=== PATIENT | male | born 1990 | race African-American/Black ===

== ENCOUNTER 2021-07-22 07:55 | Inpatient (IN) | payer SELFPAY ==
[2021-07-22] VITALS (23 sets, daily range): BP systolic 107–179; BP diastolic 50–109; PULSE 77–107; RESP 8–26; TEMP 35.8–37.2; O2SAT 94–100
--- NOTE | 2021-07-22 | ECG_ITS ---
Measurements Intervals [place] Rate: 101 P: 79 W[place]: 154 QRS: 56 QRSD: 90 T: 47 QT: 326 QTc: 424 Interpretive Statements SINUS TACHYCARDIA POSSIBLE LEFT ATRIAL ENLARGEMENT INCOMPLETE RIGHT BUNDLE BRANCH BLOCK BASELINE ARTIFACT- II, V2-V6 BORDERLINE ECG Electronically Signed On 07-22-2021 12:44:12 CDT by Jurgen Malone D.O.
--- NOTE | ~2021-07-22 | XR_ITS ---
EXAMINATION: XR chest 1V portable INDICATION: Altered mental status TECHNIQUE: Portable AP chest at 0809 hours COMPARISON: None available FINDINGS: The lungs are free of acute opacities. There is no pleural effusion or pneumothorax. The ca rdiomediastinal silhouette is normal. There is partially imaged plate and screw fixation of the proxi mal left humerus. IMPRESSION: 1. No acute cardiopulmonary abnormality. Reviewed, dictated and finalized at location A.
--- NOTE | ~2021-07-22 | XR_ITS ---
EXAMINATION: XR knee LT 3V DATE: 07/22/2021 15:25 INDICATION: Posterior left knee pain. TECHNIQUE: 3 views of left knee were obtained. COMPARISON: None. FINDINGS: Bone alignment is normal. No fracture. There is mild tricompartmental osteoarthritis charac terized by tiny marginal osteophytes. No joint space narrowing. No knee joint effusion. IMPRESSION: 1. Mild left knee osteoarthritis. Reviewed, dictated and finalized at location A.
--- NOTE | ~2021-07-22 | US_ITS ---
EXAMINATION: US venous doppler [facility] DATE: 07/22/2021 13:34 INDICATION: Lower limb pain TECHNIQUE: Gifford scale images without and with compression and Doppler images of the bilateral lower e xtremity veins were obtained. COMPARISON: None FINDINGS: The right common femoral vein, profunda femoral vein, femoral vein, popliteal vein, peroneal trunk, p osterior tibial veins, and greater saphenous vein are patent. The left common femoral vein, profunda femoral vein, femoral vein, popliteal vein, peroneal trunk, po sterior tibial veins, and greater saphenous vein are patent. IMPRESSION: 1. Patent bilateral lower extremity veins. No evidence of deep venous thrombosis. Reviewed, dictated and finalized at location A. IMPRESSION: 1. Patent bilateral lower extremity veins. No evidence of deep venous thrombosi s.
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
[2021-07-22] MEDS: KETOROLAC (*BKC) 60 MG/2 ML VIAL (08:09)
[2021-07-22] MEDS: SODIUM CHLORIDE 0.9% IV 1,000 ML 999 ML IV CONT ×3 (08:36→16:41)
[2021-07-22 08:38] LABS: Basophils Absolute Auto 0.1 K/mm3 (0.0-0.1); Basophils Percent Auto 0.5 % (0.2-1.2); Eosinophils Absolute Auto 0.1 K/mm3 (0-0.3); Eosinophils Percent Auto 0.2 % (0-4.4); Hematocrit 45.9 % (42.0-52.0); Immature Granulocyte Absolute 1.09 K/mm3 (0.00-0.031); Lymphocytes Absolute Auto 1.88 K/mm3 (0.9-3.2); Lymphocytes Percent Auto 8.5 % (18.3-44.2); Mean Corpuscular HGB Conc 30.5 g/dl (32-36); Mean Corpuscular Hemoglobin 29.5 pg (26-34); Mean Corpuscular Volume 96.6 fl (80-100); Mean Platelet Volume 9.4 fl (7.4-10.4); Monocytes Absolute Auto 0.9 K/mm3 (0.1-0.6); Monocytes Percent Auto 4.3 % (2.6-8.5); Neutrophils Absolute Auto 17.9 K/mm3 (1.3-6.7); Neutrophils Percent Auto 81.5 % (45.5-73.1); Platelet Count Result 340 k/mm3 (150-375); Red Blood Count 4.75 M/mm3 (4.6-6.20); Red Cell Distribution Width 12.4 % (11.5-14.5)
[2021-07-22 08:47] LABS: Acetaminophen < 10 ug/mL (10-30); Ethanol < 10 mg/dL (<10); Salicylate < 1.0 mg/dL (2-20)
[2021-07-22 09:11] LABS: Alanine Aminotransferase 79 U/L (4-50); Albumin Level 4.9 g/dL (3.5-5.1); Alkaline Phosphatase 69 U/L (38-126); Anion Gap 17 mmol/L (8-16); Aspartate Amino Transferase 181 U/L (17-59); Bilirubin,Total 0.4 mg/dL (0.2-1.3); Blood Urea Nitrogen 22 mg/dL (9-20); Calcium 9.2 mg/dL (8.4-10.2); Carbon Dioxide 20 mmol/L (22-30); Chloride 101 mmol/L (98-107); Estimated CRCL calculation 56 ml/min; Estimated Glomerular Filt Rate 47; Glucose 97 mg/dL (65-110); Potassium 4.8 mmol/L (3.4-5.0); Sodium 138 mmol/L (137-145)
[2021-07-22 11:40] LABS: Add Urine Microscopic? YES; Appearance Urine Clear (Clear); Bilirubin Urine Negative (Negative); Blood Urine 1+ (Negative); Color Urine Yellow (Yellow); Glucose Urine UA Negative (Negative); Ketones Urine Trace mg/dL (Negative); Leukocyte Esterase Ur Negative LEU/UL (Negative); Mucus Urine Rare /lpf; Nitrate Urine Negative (Negative); Protein Urine 2+ mg/dL (Negative); Specific Grav Ur 1.018 (1.001-1.035); Squamous Epithelial Cell Urine Rare /hpf (Few); Urobilinogen Urine Negative mg/dL (<2.0)
[2021-07-22 12:11] LABS: Barbiturate Screen Urine Negative (Negative); Benzodiazepines Screen Urine Positive (Negative)
[2021-07-22 12:19] LABS: Amphetamine Screen Urine Positive (Negative); Cannabinoid Screen Urine Positive (Negative); Cocaine Screen Urine Negative (Negative); Methadone Screen Urine Negative (Negative); Opiate Screen Urine Negative (Negative); Phencyclidine Screen Urine Negative (Negative)
--- NOTE | 2021-07-22 12:40 | PC.NURSE ---
Patient states he is leaving and is requesting to have IV removed. ROSALINAP Jamar notified.
--- NOTE | 2021-07-22 12:50 | PC.NURSE ---
Patient now states he is unable to walk and it feels like he has no circulation in his legs.
--- NOTE | 2021-07-22 12:53 | PC.NURSE ---
Patient to ultrasound.
--- NOTE | 2021-07-22 13:36 | PC.NURSE ---
[facility]. [facility]
[2021-07-22 14:52] LABS: Erythrocyte Sedimentation Rate 4 mm/hr (0-20)
--- NOTE | 2021-07-22 14:56 | PC.NURSE ---
Patient seen attempting to ambulate out of ED stating, get me a wheelchair I am leaving. Patient had removed second IV and has blood covering arm. IV site dressed and patient told to stay in bed so EDP Jamar can speak to patient.
--- NOTE | 2021-07-22 15:04 | PC.NURSE ---
Patient is willing to stay in hospital at this time.
[2021-07-22 16:33] LABS: CRP 0.7 mg/dL (<1.0); Creatine Kinase 2093 U/L (55-170)
--- NOTE | 2021-07-22 16:39 | PC.NURSE ---
Per EDIsis Roldan via verbal order read-back, give another 1L of normal saline bolus.
[2021-07-22] MEDS: SODIUM CHLORIDE 0.9% IV 1,000 ML 500 ML IV CONT (18:00)
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
--- NOTE | 2021-07-22 19:04 | ADMGEN ---
This patient, Jean Gamble, was admitted to [facility] Surg Room 323-01. Patient/family oriented to hospital policies and general routines including ID bracelet, bed and alarms, visiting hours, pain management, procedures, bathroom and other care routines, personal items, smoking policy, room service/diet, and visiting hours. Information on how to activate the Rapid Response Team has been discussed. Patient/Family are encouraged to report perceived risks to care and to ask questions if they do not understand what they are told or what they should do.
[2021-07-22] MEDS: LORazepam INJ (*CRX) 2 MG/ML VIAL 1 MG IV PUSH (19:59)
[2021-07-22] MEDS: SODIUM CHLORIDE 0.9% IV 1,000 ML 200 ML IV CONT (20:05)
[2021-07-22] MEDS: HEPARIN SODIUM 5,000 UNITS/ML VIAL 5000 UNITS SUB-Q (20:47)
[2021-07-22 21:58] LABS: Folic Acid 10.3 ng/mL (2.76->20)
--- NOTE | 2021-07-22 23:07 | PC.NURSE ---
Called Dr llamas,informed of pt complaint of numbness,tingling, sharp piuns in skinny legs from knees down. directed to give prn tylenol iv that is on med orders.
[2021-07-22] MEDS: HYDROcodone/acetaminophen (*CRX) 5-325 MG TABLET 1 TAB PO (23:58)
[2021-07-23] MEDS: SODIUM CHLORIDE 0.9% IV 1,000 ML 200 ML IV CONT ×3 (01:25→16:27)
[2021-07-23] MEDS: LORazepam INJ (*CRX) 2 MG/ML VIAL 1 MG IV PUSH ×2 (04:45→06:07)
[2021-07-23] MEDS: GABAPENTIN 300 MG CAPSULE PO ×4 (05:02→17:41)
[2021-07-23 05:54] VITALS: BP 142/74; PULSE 76; RESP 20; TEMP 36.7; O2SAT 100
[2021-07-23] MEDS: HYDROcodone/acetaminophen (*CRX) 5-325 MG TABLET 1 TAB PO ×3 (06:04→19:52)
[2021-07-23 07:05] LABS: Basophils Percent Auto 0.2 % (0.2-1.2); Eosinophils Absolute Auto 0.1 K/mm3 (0-0.3); Hemoglobin 11.3 g/dL (14.0-18.0); Immature Granulocyte Absolute 0.06 K/mm3 (0.00-0.031); Immature Granulocyte Percent A 0.6 % (0-0.5); Lymphocytes Absolute Auto 3.36 K/mm3 (0.9-3.2); Lymphocytes Percent Auto 33.8 % (18.3-44.2); Mean Corpuscular HGB Conc 29.7 g/dl (32-36); Mean Corpuscular Hemoglobin 28.3 pg (26-34); Mean Platelet Volume 9.4 fl (7.4-10.4); Monocytes Absolute Auto 0.7 K/mm3 (0.1-0.6); Monocytes Percent Auto 7.4 % (2.6-8.5); Neutrophils Absolute Auto 5.7 K/mm3 (1.3-6.7); Platelet Count Result 271 k/mm3 (150-375); Red Cell Distribution Width 12.1 % (11.5-14.5); White Blood Count 9.9 K/mm3 (4.5-10.0)
[2021-07-23 08:10] LABS: Anion Gap 6 mmol/L (8-16); Blood Urea Nitrogen 17 mg/dL (9-20); Calcium 7.8 mg/dL (8.4-10.2); Carbon Dioxide 22 mmol/L (22-30); Chloride 110 mmol/L (98-107); Estimated CRCL calculation 108 ml/min; Estimated Glomerular Filt Rate > 60; Glucose 81 mg/dL (65-110); Potassium 3.7 mmol/L (3.4-5.0); Sodium 138 mmol/L (137-145)
[2021-07-23 08:15] LABS: Creatine Kinase MB 25.4 ng/mL (0.0-2.37)
[2021-07-23 09:40] LABS: Hypochromasia 1+ (NORMAL); Platelet Estimate Adequate (Adequate)
[2021-07-23] MEDS: HEPARIN SODIUM 5,000 UNITS/ML VIAL 5000 UNITS SUB-Q ×2 (09:55→20:07)
--- NOTE | 2021-07-23 10:02 | PCOTNOTE ---
Patient was seen this morning for OT evaluation. As evaluation was in process, OT therapy clarification orders were cancelled. No further OT will be provided at this time.
[2021-07-23 10:33] LABS: Creatine Kinase 2754 U/L (55-170)
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
--- NOTE | 2021-07-23 12:03 | PM.IMPN ---
Progress Note: A&P Assessment and Plan (1) Rhabdomyolysis: Qualifiers: Encounter type: subsequent encounter Rhabdomyolysis type: traumatic Qualified Code(s): T79.6XXD - Traumatic ischemia of muscle, subsequent encounter Code(s): M62.82 - Rhabdomyolysis Status: Acute Assessment and Plan: The patient has rhabdo with bilateral leg cramping and elevated CK at 2000. Could be secondary to dehydration since he had ENOC with a Cr 2.0 vs amphetamine use. Venous Dopplers negative for DVT. CK increased today to 2700 Continue IV fluid hydration at 200 cc/hr He was placed on Gabapentin and [place] PRN for symptoms Symptomatic care until CK decreases. Continue monitoring. (2) Drug abuse: Code(s): F19.10 - Other psychoactive substance abuse, uncomplicated Status: Acute Assessment and Plan: Urine drug screen showing Positive Amphetamines and benzos. Patient denies uses. Patient admits to marijuana. The patient was given narcan in the field. Doing well at this time. (3) ENOC (acute kidney injury): Code(s): N17.9 - Acute kidney failure, unspecified Status: Acute Assessment and Plan: ENOC with Cr at 2.0 from dehydration. Improved today to 1.0. Continue with IV fluids due to rhabdo. Recheck BMP in AM. (4) Leukocytosis: Qualifiers: Leukocytosis type: unspecified Qualified Code(s): D72.829 - Elevated white blood cell count, unspecified Code(s): D72.829 - Elevated white blood cell count, unspecified Status: Acute Assessment and Plan: Could be related to stress induced trauma. Normalized today. No signs of infection at this time. There is a urine culture pending due to 7-9 WBCs in UA. No signs of infections. No abx at this time. Time Spent With Patient Time with patient: 25 - 35 minutes Subjective Date/time seen: 07/23/21 12:03 Interval history: Date of service 07/22/2021: Patient reports of continued leg cramping and swelling to bilaterally from his knees down. Worsening calf cramping with flexion and extension of his feet. He has not gotten up to walk due to the pain in his legs. He denies any back pain, fall prior to arrival, head trauma. Denies any fevers, chills, chest pain, shortness of breath, cough, nausea, vomiting, abdominal pain, lightheadedness, dizziness, or any other symptoms at this time. Review of Systems Review of Systems: All systems reviewed & are unremarkable except as noted in HPI and below Exam Narrative: General: 31-year-old man laying flat in bed talking on the phone. Appears comfortable. In no acute distress. Skin: No jaundice or cyanosis. Good skin turgor. Neck: Full range of motion. Supple. Back: No midline cervical, thoracic, lumbar tenderness to palpation. No step offs. No paraspinal tenderness. Good ROM. Sitting up multiple times during examination, lifting legs off of the bed, negative straight leg raise. Respiratory: Lungs are clear to auscultation bilaterally. No bony chest wall tenderness. Cardiovascular: The heart has a regular rate and rhythm without murmur. Lower extremities: Reproducible cramping/pain with dorsiflexion and plantar flexion on examination. Calf tenderness with palpation. Nonpitting lower extremity edema slightly appreciated on exam. Distal pulses are easily palpated. Gastrointestinal: The abdomen is soft, nontender and nondistended with active bowel sounds. Psychiatric: Lucid and oriented. Memory intact. Neurologic: No focal deficits. Speech is clear. No facial drooping. Objective Data Vital Signs Vital Signs: Vital Signs - 24 hr 07/22/21 14:06 07/22/21 16:43 07/22/21 17:29 Temperature 97.6 F Pulse Rate 85 78 86 Respiratory Rate 17 18 14 Blood Pressure 110/71 139/50 L 124/68 Pulse Oximetry 100 99 97 08/
[2021-07-23 14:00] VITALS: BP 154/97; PULSE 65; RESP 18; TEMP 36.4; O2SAT 99
[2021-07-23 22:00] VITALS: BP 165/85; PULSE 75; RESP 18; TEMP 36.8; O2SAT 99
[2021-07-24] MEDS: HYDROcodone/acetaminophen (*CRX) 5-325 MG TABLET 1 TAB PO ×4 (00:11→22:33)
[2021-07-24 06:00] VITALS: BP 151/83; PULSE 58; RESP 18; TEMP 36.4; O2SAT 100
[2021-07-24 06:53] LABS: Hematocrit 34.5 % (42.0-52.0); Hemoglobin 10.9 g/dL (14.0-18.0); Mean Corpuscular HGB Conc 31.6 g/dl (32-36); Mean Corpuscular Hemoglobin 28.7 pg (26-34); Mean Corpuscular Volume 90.8 fl (80-100); Mean Platelet Volume 9.7 fl (7.4-10.4); Platelet Count Result 271 k/mm3 (150-375); Red Cell Distribution Width 11.9 % (11.5-14.5); White Blood Count 6.8 K/mm3 (4.5-10.0)
[2021-07-24 07:06] LABS: Anion Gap 2 mmol/L (8-16); Blood Urea Nitrogen 11 mg/dL (9-20); Calcium 8.1 mg/dL (8.4-10.2); Carbon Dioxide 26 mmol/L (22-30); Chloride 110 mmol/L (98-107); Creatine Kinase 1327 U/L (55-170); Estimated CRCL calculation 108 ml/min; Estimated Glomerular Filt Rate > 60; Glucose 96 mg/dL (65-110); Potassium 4.1 mmol/L (3.4-5.0); Sodium 138 mmol/L (137-145)
[2021-07-24] MEDS: GABAPENTIN 300 MG CAPSULE PO ×3 (09:01→17:51)
[2021-07-24] MEDS: HEPARIN SODIUM 5,000 UNITS/ML VIAL 5000 UNITS SUB-Q (09:03)
[2021-07-24] MEDS: SODIUM CHLORIDE 0.9% IV 1,000 ML 200 ML IV CONT ×3 (12:25→23:33)
[2021-07-24 14:00] VITALS: BP 142/78; PULSE 51; RESP 16; TEMP 36.7; O2SAT 100
--- NOTE | 2021-07-24 15:13 | PM.IMPN ---
Progress Note: A&P Assessment and Plan (1) Rhabdomyolysis: Qualifiers: Encounter type: subsequent encounter Rhabdomyolysis type: traumatic Qualified Code(s): T79.6XXD - Traumatic ischemia of muscle, subsequent encounter Code(s): M62.82 - Rhabdomyolysis Status: Acute Assessment and Plan: The patient has rhabdo with bilateral leg cramping and elevated CK at 2000. Could be secondary to dehydration since he had ENOC with a Cr 2.0 vs amphetamine use. Venous Dopplers negative for DVT. CK improved to 1300 and he is still having feet pain. Continue IV fluid hydration at 200 cc/hr He was placed on Gabapentin and [place] PRN for symptoms Symptomatic care until CK decreases. Continue monitoring. (2) Drug abuse: Code(s): F19.10 - Other psychoactive substance abuse, uncomplicated Status: Acute Assessment and Plan: Urine drug screen showing Positive Amphetamines and benzos. Patient denies uses. Patient admits to marijuana. The patient was given narcan in the field. Doing well at this time without any signs of withdrawal. (3) ENOC (acute kidney injury): Code(s): N17.9 - Acute kidney failure, unspecified Status: Acute Assessment and Plan: ENOC with Cr at 2.0 from dehydration. Improved today to 1.0. Continue with IV fluids due to rhabdo. Recheck BMP in AM. (4) Leukocytosis: Qualifiers: Leukocytosis type: unspecified Qualified Code(s): D72.829 - Elevated white blood cell count, unspecified Code(s): D72.829 - Elevated white blood cell count, unspecified Status: Acute Assessment and Plan: Could be related to stress induced trauma. Normalized today. No signs of infection at this time. There is a urine culture pending due to 7-9 WBCs in UA. No signs of infections. No abx at this time. Time Spent With Patient Time with patient: 25 - 35 minutes Subjective Date/time seen: 07/24/21 15:13 Interval history: Date of service 07/24/2021: Patient reports of continued sensitivity to bilateral feet. No more calf cramping or leg swelling, it is just localized to his feet and has pain with walking. He has not been very mobile due to feet pain today. Reports normal urine color. Denies any fevers, chills, chest pain, shortness of breath, cough, nausea, vomiting, abdominal pain, lightheadedness, dizziness, or any other symptoms at this time. Review of Systems Review of Systems: All systems reviewed & are unremarkable except as noted in HPI and below Exam Narrative: General: 31-year-old man laying flat in bed taking a nap. Appears comfortable. In no acute distress. Skin: No jaundice or cyanosis. Good skin turgor. Neck: Full range of motion. Supple. Respiratory: Lungs are clear to auscultation bilaterally. No bony chest wall tenderness. Cardiovascular: The heart has a regular rate and rhythm without murmur. Lower extremities: No calf pain to palpation. Sensitivity to bilateral plantar aspect of feet. Nonpitting lower extremity edema slightly appreciated on exam. Distal pulses are easily palpated. Gastrointestinal: The abdomen is soft, nontender and nondistended with active bowel sounds. Psychiatric: Lucid and oriented. Memory intact. Neurologic: No focal deficits. Speech is clear. No facial drooping. Objective Data Vital Signs Vital Signs: Vital Signs - 24 hr 07/23/21 22:00 07/24/21 06:00 07/24/21 14:00 Temperature 98.2 F 97.6 F 98.0 F Pulse Rate 75 58 L 51 L Respiratory Rate 18 18 16 Blood Pressure 165/85 H 151/83 H 142/78 H Pulse Oximetry 99 100 100 Intake/Output Intake/Output: Intake & Output 07/21/21 07/22/21 07/23/21 07/24/21 23:59 23:59 23:59 23:59 Intake Total 4165 5620 1730 Output Total 1700 400 Balance 4165 3920 1330 Meds/Results Medications: Activ
[2021-07-24 20:15] LABS: Hematocrit 35.7 % (42.0-52.0); Hemoglobin 11.3 g/dL (14.0-18.0)
[2021-07-24] MEDS: LORazepam INJ (*CRX) 2 MG/ML VIAL 1 MG IV PUSH (20:18)
[2021-07-24 22:00] VITALS: BP 186/90; PULSE 55; RESP 20; TEMP 36.2; O2SAT 98
[2021-07-25] MEDS: HYDROcodone/acetaminophen (*CRX) 5-325 MG TABLET 1 TAB PO ×2 (03:42→08:19)
[2021-07-25] MEDS: SODIUM CHLORIDE 0.9% IV 1,000 ML 200 ML IV CONT ×2 (04:29→09:21)
[2021-07-25 06:00] VITALS: BP 179/82; PULSE 58; RESP 20; TEMP 36.6; O2SAT 95
[2021-07-25 07:08] LABS: Hematocrit 38.7 % (42.0-52.0); Hemoglobin 12.3 g/dL (14.0-18.0); Mean Corpuscular HGB Conc 31.8 g/dl (32-36); Mean Corpuscular Hemoglobin 28.7 pg (26-34); Mean Corpuscular Volume 90.4 fl (80-100); Mean Platelet Volume 9.6 fl (7.4-10.4); Platelet Count Result 301 k/mm3 (150-375); Red Blood Count 4.28 M/mm3 (4.6-6.20); Red Cell Distribution Width 11.9 % (11.5-14.5); White Blood Count 7.8 K/mm3 (4.5-10.0)
[2021-07-25 07:27] LABS: Anion Gap 6 mmol/L (8-16); Blood Urea Nitrogen 8 mg/dL (9-20); Calcium 8.6 mg/dL (8.4-10.2); Carbon Dioxide 22 mmol/L (22-30); Chloride 111 mmol/L (98-107); Creatine Kinase 1004 U/L (55-170); Estimated CRCL calculation 108 ml/min; Estimated Glomerular Filt Rate > 60; Glucose 94 mg/dL (65-110); Potassium 3.8 mmol/L (3.4-5.0); Sodium 139 mmol/L (137-145)
[2021-07-25] MEDS: GABAPENTIN 300 MG CAPSULE PO (08:16)
[2021-07-25 09:30] LABS: Add Urine Microscopic? NO; Appearance Urine Clear (Clear); Bilirubin Urine Negative (Negative); Blood Urine Negative (Negative); Color Urine Colorless (Yellow); Glucose Urine UA Negative (Negative); Ketones Urine Negative (Negative); Leukocyte Esterase Ur Negative LEU/UL (NEGATIVE); Nitrate Urine Negative (Negative); Protein Urine Negative (Negative); Specific Grav Ur 1.005 (1.001-1.035); Urobilinogen Urine Negative mg/dL (<2.0)
--- NOTE | 2021-07-25 10:41 | PM.DS ---
DS: Admitting Diagnosis Admitting Diagnosis AMS DS: Discharge Diagnosis Discharge Diagnosis (1) Rhabdomyolysis: Qualifiers: Encounter type: subsequent encounter Rhabdomyolysis type: traumatic Qualified Code(s): T79.6XXD - Traumatic ischemia of muscle, subsequent encounter Code(s): M62.82 - Rhabdomyolysis Status: Acute Assessment and Plan: Patient is a 31-year-old man with no chronic medical history, who presented to emergency room via EMS after patient's significant other found him unresponsive, agonal breathing, pinpoint pupils. EMS gave the patient 4 mg of I and Narcan with improvement of his symptoms and was more awake. Patient is brought to the emergency room for further evaluation and workup. Initial labs show elevated blood pressure 179/109, heart rate 100 beats per minute, normal respiratory rate oxygenation on room air. Afebrile. Initial labs showed leukocytosis at 22,000, slight elevation neutrophil count, ENOC with a creatinine at 2.0, BUN 22, elevation of AST and ALT. Elevated CK at 2093. Drug screen showed positive amphetamines, benzodiazepines, and marijuana. Patient was admitted into the hospital for rhabdomyolysis with IV fluids at 200 cc an hour. The patient has rhabdo with bilateral leg cramping and elevated CK at 2000. Could be secondary to dehydration since he had ENOC with a Cr 2.0 vs amphetamine use. Venous Dopplers negative for DVT. CK improved to 1004 today and he is not having any more symptoms. UA showed no blood in his urine. He is stable at this time. Recommended him to not use drugs, stay hydrated, still sits out any excessive heat. Follow-up with primary care provider. Resources given my care coordination to the patient. Return to ER warnings given. Patient understands agrees the plan all questions answered. (2) Drug abuse: Code(s): F19.10 - Other psychoactive substance abuse, uncomplicated Status: Acute Assessment and Plan: Urine drug screen showing Positive Amphetamines and benzos. Patient denies uses. Patient admits to marijuana. The patient was given narcan in the field. Doing well at this time without any signs of withdrawal. (3) ENOC (acute kidney injury): Code(s): N17.9 - Acute kidney failure, unspecified Status: Acute Assessment and Plan: ENOC with Cr at 2.0 from dehydration. Improved today to 1.0. Most likely his baseline. (4) Leukocytosis: Qualifiers: Leukocytosis type: unspecified Qualified Code(s): D72.829 - Elevated white blood cell count, unspecified Code(s): D72.829 - Elevated white blood cell count, unspecified Status: Acute Assessment and Plan: Could be related to stress induced trauma. Normalized today. No signs of infection at this time. There is a urine culture pending due to 7-9 WBCs in UA. No signs of infections. No abx at this time. DS: Summary Hospital Course Hospital Course: See above Status at Discharge Cognitive/behavioral status at discharge: Stable, improved. Time Spent with Patient Time attestation: Total time spent providing and/or coordinating discharge services: 40 Time spent: Greater than 30 minutes Exam Narrative: General: 31-year-old man laying flat on the phone watching TV. Appears comfortable. In no acute distress. Skin: No jaundice or cyanosis. Good skin turgor. Neck: Full range of motion. Supple. Respiratory: Lungs are clear to auscultation bilaterally. No bony chest wall tenderness. Cardiovascular: The heart has a regular rate and rhythm without murmur. Lower extremities: No calf pain to palpation. Sensitivity to bilateral plantar aspect of feet. No leg edema. Distal pulses are easily palpated. Gastrointestinal: The abdomen is soft, nontender and nondistended with active bowel sound
== END 2021-07-25 11:45 | disposition home or self-care (01) | DRG 351 ==
LOC: ANHED 16:39 → ANH3MEDSUR 18:17
PROVIDERS: Nurse Practitioner; Admitting Provider Internal Medicine; Emergency Provider Emergency Medicine; Visit Provider Physician Assistant
DX: T79.6XXA Traumatic ischemia of muscle, initial encounter (principal); N17.9 Acute kidney failure, unspecified; D72.829 Elevated white blood cell count, unspecified; F19.10 Other psychoactive substance abuse, uncomplicated; Z87.891 Personal history of nicotine dependence
CPT/HCPCS: 36415; 71045; 73562; 80048; 80053; 80307; 81001; 81003; 82550; 82553; 82607; 82746; 83735; 85014; 85018; 85025; 85027; 85652; 86140; 87086; 87088; 93005; 93970; 96361; 96365; 96374; 96375; 96376; 97165; 99285; A9270; G0378; G0379; J0131; J1644; J1885; J2060; J7030